=== PATIENT | male | born 1990 | race American Indian/Alaskan Native ===

== ENCOUNTER 2016-11-22 17:05 | Emergency (ER) | payer SELFPAY ==
[2016-11-22 23:29] VITALS: BP 122/78
--- NOTE | 2016-11-22 23:50 | Emergency Department Report ---
Chief Complaint: Extremity Problem,Nontraumatic Stated Complaint: FEET PAIN Time Seen by Provider: 11/22/16 23:27 - HPI History of Present Illness: 26-year-old male presents today with bilateral typhi 1 week. 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 Positive for history of similar symptoms. Patient states his work has made his feet worse and now the pain is radiating up his leg. Tried Tylenol without relief. Denies fever, chills, nausea, vomiting, chest pain, shortness of breath, abdominal pain. - ROS Review of Systems: Per HPI - Exam Vital Signs: Vital Signs 11/22/16 11/22/16 17:30 23:28 Temperature 98.1 F 98.3 F Pulse Rate 72 66 Respiratory 16 Rate Blood Pressure 121/77 Blood Pressure 122/78 [Left] O2 Sat by Pulse 100 98 Oximetry Physical Exam: GENERAL: The patient is well-developed and well-nourished. Patient is in NAD. HEAD: Normocephalic. Atraumatic. CHEST/LUNGS: Clear to auscultation throughout. HEART/CARDIOVASCULAR: Regular rate and rhythm. No murmurs, rubs or gallops. ABDOMEN: Abdomen is soft, nontender. Bowel sounds normoactive. No guarding or rebound tenderness. BILATERAL FEET: Dry skin noted over the toes and in between creases. No open wounds. No bleeding or drainage. No signs of infection. Normal sensation. Peripheral pulses intact. Capillary refill less than 2 seconds. NEURO: Alert and oriented x 3. Normal gait. MSE screening note: Focused history and physical exam performed. Due to findings the following was ordered: ED Disposition for MSE Disposition: MEDICAL SCREENING EXAM-LEFT Condition: Stable Referrals: PRIMARY CARE, [Primary Care Provider] - 3-5 Days
== END 2016-11-22 23:59 | disposition left against medical advice (07) ==
LOC: ED 17:05
DX: M79.671 Pain in right foot (principal); M79.672 Pain in left foot; Z53.21 Procedure and treatment not carried out due to patient leaving prior to being seen by health care provider

== ENCOUNTER 2017-02-25 20:10 | Emergency (ER) | payer SELFPAY ==
--- NOTE | 2017-02-25 23:41 | Emergency Department Report ---
Suture/Staple Removal - [facility] Chief Complaint: Laceration/Recheck/Suture Stated Complaint: SUTURE REMOVAL Time Seen by Provider: 02/25/17 23:39 ED Review of Systems ROS: Stated complaint: SUTURE REMOVAL Other details as noted in HPI Comment: All other systems reviewed and negative Constitutional: denies: chills, fever Eyes: denies: eye pain, eye discharge, vision change ENT: denies: ear pain, throat pain Respiratory: denies: cough, shortness of breath, wheezing Cardiovascular: denies: chest pain, palpitations Endocrine: no symptoms reported Gastrointestinal: denies: abdominal pain, nausea, diarrhea Genitourinary: denies: urgency, dysuria Musculoskeletal: as per HPI (sutures tin right [place] area 13 days ago). denies: back pain, joint swelling, arthralgia Skin: denies: rash, lesions Neurological: denies: headache, weakness, paresthesias Psychiatric: denies: anxiety, depression Hematological/Lymphatic: denies: easy bleeding, easy bruising ED Past Medical Hx - Past Medical History Previous Medical History?: No - Surgical History Past Surgical History?: No - Social History Smoking Status: Current Every Day Smoker Substance Use Type: Alcohol - Medications Home Medications: Home Medications Medication Instructions Recorded Confirmed Last Taken Type Sulfamethoxazole/Trimethoprim 1 each PO BID #14 tablet 02/26/17 Unknown Rx [Bactrim DS TAB] Suture Removal Exam - Exam General: Vital signs noted. No distress. Alert and acting appropriately. Wound: No Pathologic Erythema, No Tenderness, No Drainage, No Pus, No Wound Dehiscence Other Systems: All other systems reviewed and are unremarkable. ED Course Vital Signs 02/25/17 22:25 Temperature 98.4 F Pulse Rate 64 Respiratory 18 Rate Blood Pressure 127/77 [Right] O2 Sat by Pulse 99 Oximetry - Reevaluation(s) Reevaluation #1: On the 3 sutures were removed after noticing wound was decreased. rest of the sutures were left in place. Patient also does come back in 3 days for suture removal. Patient was given Bactrim for antibiotics. 02/26/17 00:33 02/26/17 01:19 Critical care attestation.: If time is entered above; I have spent that time in minutes in the direct care of this critically ill patient, excluding procedure time. ED Disposition Clinical Impression: Visit for suture removal Disposition: DISCHARGED TO HOME OR SELFCARE Is pt being admited?: No Does the pt Need Aspirin: No Condition: Good Instructions: Acute Wound Care (ED) Prescriptions: Sulfamethoxazole/Trimethoprim [Bactrim DS TAB] 1 each PO BID #14 tablet Referrals: PRIMARY CARE, [Primary Care Provider] - 3-5 Days
[2017-02-26 01:24] VITALS: BP 135/75
== END 2017-02-26 01:24 | disposition home or self-care (01) ==
LOC: ED 20:10
DX: S81.811D Laceration without foreign body, right lower leg, subsequent encounter (principal); F17.200 Nicotine dependence, unspecified, uncomplicated; W45.8XXD Other foreign body or object entering through skin, subsequent encounter; Y93.89 Activity, other specified; Y99.8 Other external cause status; Y92.89 Other specified places as the place of occurrence of the external cause

== ENCOUNTER 2017-03-09 16:02 | Emergency (ER) | payer SELFPAY ==
[2017-03-09 17:39] VITALS: BP 113/74
--- NOTE | 2017-03-09 17:43 | Emergency Department Report ---
Chief Complaint: Laceration/Recheck/Suture Stated Complaint: SUTURE REMOVAL Time Seen by Provider: 03/09/17 17:43 - HPI History of Present Illness: sutures placed at [facility] weeks ago here for 3 to be removed prior did not come back now overgrown but no s/s infection - ROS Review of Systems: as noted - Exam Vital Signs: Vital Signs 03/09/17 17:35 Temperature 98.5 F Pulse Rate 76 Respiratory 18 Rate Blood Pressure 113/74 O2 Sat by Pulse 100 Oximetry Physical Exam: vss nad no fever no infection ambulatory MSE screening note: Focused history and physical exam performed. Due to findings the following was ordered: ED Disposition for MSE Clinical Impression: Encounter for removal of sutures Disposition: DISCHARGED TO HOME OR SELFCARE Is pt being admited?: No Does the pt Need Aspirin: No Condition: Good Instructions: Suture Removal (ED) Additional Instructions: keep clean and dry Time of Disposition: 18:08
[2017-03-09] MEDS ORDERED: TRIPLE ANTIBIOTIC TP ONE ×2 (17:56→18:01)
--- NOTE | 2017-03-09 18:07 | Emergency Department Report ---
Entered by COSMO LANIER, acting as scribe for CONNOR HILL NP. Chief Complaint: Laceration/Recheck/Suture Stated Complaint: SUTURE REMOVAL Time Seen by Provider: 03/09/17 17:43 - HPI History of Present Illness: 26 y/o male presents with laceration sutures in his right anterior tibial region , which need to be removed. No additional Sx NAD VSS Ambulatory No focal or neuro deficits - ROS Review of Systems: as noted in HPI - Exam Vital Signs: Vital Signs 03/09/17 17:35 Temperature 98.5 F Pulse Rate 76 Respiratory 18 Rate Blood Pressure 113/74 O2 Sat by Pulse 100 Oximetry Physical Exam: as noted in HPI MSE screening note: Focused history and physical exam performed. Due to findings the following was ordered: ED Disposition for MSE Condition: Stable This documentation as recorded by the scribe,COSMO LANIER,accurately reflects the service I personally performed and the decisions made by me,CONNOR HILL NP.
== END 2017-03-09 18:00 | disposition home or self-care (01) ==
LOC: ED 16:02
DX: S81.811D Laceration without foreign body, right lower leg, subsequent encounter (principal); Z53.21 Procedure and treatment not carried out due to patient leaving prior to being seen by health care provider
CPT/HCPCS: A6250